=== PATIENT | female | born 1950 | race Caucasian/White ===

== ENCOUNTER 2016-04-08 19:32 | Inpatient (IN) | payer MEDICARE, SELFPAY ==
--- NOTE | ~2016-04-08 | PUL ---
[place] [id number] [facility] [place]. [address] NAME: RAYMOND ABBASI : 54 STATUS : ADM IN PAT#: [id number] AGE: 66 ADM/REG DATE : 04/09/16 MR#: [id number] REPORT SERV DATE: 04/22/16 DICTATED BY: MONICA HUNTER DATE: 04/21/16 REPORT STATUS : Draft TRANSCRIBED BY: MODL DATE: 04/21/16 PULMONARY FUNCTION TEST Total recording time 6 hours 14 minutes, mean pulse 59, mean oxygen saturation 90.7. Time when oxygen saturation less than 88%, less than 1 minute, 0.2% of the night. INTERPRETATION: This is a normal overnight pulse oximetry on an FiO2 of 40%. Upon review of the graft, no spike in wave is seen; therefore, a concern of sleep apnea is less in this study. HFQ/MODL Monica Hunter MD / [id number] CC: Dexter Stone M.D.
--- NOTE | ~2016-04-08 | DS ---
Discharge Summary [facility] [address] [place]. [address] NAME: RAYMOND ABBASI : 54 STATUS : DIS IN PAT#: [id number] AGE: 66 ADM/REG DATE : 04/09/16 MR#: [id number] REPORT SERV DATE: 05/01/16 DICTATED BY: BINDU JACOBSEN DATE: 04/30/16 REPORT STATUS : Draft TRANSCRIBED BY: MODL DATE: 04/30/16 ADMISSION DATE: 04/09/2016 DISCHARGE DATE: 04/30/2016 DISCHARGE DIAGNOSES: 1. Acute heart failure, systolic and diastolic, recovered. 2. Acute hypoxic respiratory failure. 3. History of sleep apnea with Pickwickian, on home BiPAP with oxygen at night. 4. History of diabetes type 2. 5. Morbid obesity. 6. Obesity hypoventilation syndrome. 7. Debility. 8. Hypothyroidism. CONSULTATIONS: 1. Dr. Montemayor. 2. Dr. Ibarra. HISTORY OF PRESENT ILLNESS: This is a 66-year-old, morbidly obese female patient, who came to the hospital with shortness of breath and both leg swelling. Please see dictated H and P. HOSPITAL COURSE: Please see interim discharge summary done by Dr. Camacho and Dr. Celis. Briefly, the patient was admitted to the hospital with ypzra-[id number]-[id number] heart failure and hypoxia. She was treated in the hospital with aggressive intravenous diuretic treatment. She had a good recovery from the heart failure after the diuresis. Most of the time, for the last couple of weeks, she has been staying in the hospital due to the discharge plan of this. She was needing a rehab facility and multiple facilities have been declining her stay. She stayed here until April 22, 2016, and finally, was decided to be her disposition place. Currently, she is using 4 L during the daytime and her oxygen saturation is adequate. She is having adequate urine output and remains in stable condition. Maximized inpatient benefit. The patient will be discharged to [facility] today. DISCHARGE MEDICATIONS: 1. Continue aspirin 325 mg once a day. 2. Lipitor 80 mg once at nighttime. 3. Coreg was decreased to 12.5 mg twice a day. 4. Continue lisinopril 5 mg once a day. 5. Continue Neurontin 100 mg once at nighttime. 6. Novolin N was decreased to 16 units twice a day along with NovoLog sliding scale. 7. Glucotrol was discontinued. 8. Continue Synthroid 137 mcg once a day. 9. Bumex was discontinued, and she is on torsemide 40 mg in the morning time and 20 mg in Discharge Summary [place] [address] [place]. [address] NAME: RAYMOND ABBASI : 54 STATUS : DIS IN PAT#: [id number] AGE: 66 ADM/REG DATE : 04/09/16 MR#: [id number] REPORT SERV DATE: 05/01/16 DICTATED BY: BINDU JACOBSEN DATE: 04/30/16 REPORT STATUS : Draft TRANSCRIBED BY: MODL DATE: 04/30/16 the afternoon time. 10.We are going to also use Zaroxolyn 5 mg every Thursday. 11.Continue Zoloft 50 mg once a day. 12.Aldactone 25 mg once a day. 13.Potassium 10 mEq twice a day. 14.Multivitamin once a day. 15.We will use Ultram 50 mg for pain control. Discussed with this patient regarding discharge medication change and followup plan. She voiced understanding. DISPOSITION: The patient is discharged to [facility] with a low-sodium diet. TIME SPENT: More than 30 minutes on discharge education and coordination. EKL/MODL Bindu Jacobsen M.D. / [id number] CC: Dexter Conway M.D.
--- NOTE | ~2016-04-08 | HP ---
History And Physical [facility] [address] [place]. [address] NAME: RAYMOND ABBASI : 54 STATUS : ADM Zuleika PAT#: [id number] AGE: 66 ADM/REG DATE : 04/08/16 MR#: [id number] REPORT SERV DATE: 04/09/16 DICTATED BY: DIEGO VALENTINO DATE: 04/09/16 REPORT STATUS : Draft TRANSCRIBED BY: MODL DATE: 04/09/16 DATE OF ADMISSION: 04/08/2016 CHIEF COMPLAINT: Progressively worsening shortness of breath and swelling up in her legs and abdomen. HISTORY OF PRESENT ILLNESS: This is a 66-year-old, morbidly obese female who has a history of congestive heart failure, presents to the emergency room at [facility] with the above-mentioned complaint. History is obtained from the patient, and reviewing data available on the [employer] system. According to the patient, she had been having progressive shortness of breath, swelling in her lower extremities and including her abdomen. This has been going on for a week or more. In the last 24 hours, she has, however, not been able to even get up off her bed and do activities of daily living. She says usually she is able to get up or perform activities of daily living, take care of her cat and herself. So, she finally decided to call EMS, and patient was brought to the emergency room. In the emergency room, initial workup revealed that she had hypoxemia, she had volume overload with a BNP of 544, exacerbation of her congestive heart failure, and acute kidney injury as well. Hospitalist Service is asked to admit her for further evaluation and treatment. At the time of my evaluation, she denied any chest pain or palpitations. She had no orthopnea. She had no cough, hemoptysis, night sweats, or weight loss. She denied any recent falls or loss of consciousness. She did, however, stretch her calf muscle and had some pain. No history of fevers, chills, nausea, vomiting, diarrhea, hematemesis hematochezia, or hematuria. No other history of recent travel or exposures other than those mentioned above. PAST MEDICAL HISTORY: Significant for history of congestive heart failure, hypertension, hypothyroidism, obstructive sleep apnea, obesity hypoventilation, chronic thrombocytopenia, and diabetes mellitus type 2. SOCIAL HISTORY: She does not smoke, drink, or use recreational drugs. FAMILY HISTORY: Noncontributory. HOME MEDICATIONS: Reviewed by me in the chart today and reordered by me. REVIEW OF SYSTEMS: As in history of present illness. All other systems were reviewed in detail and are quite unremarkable. PHYSICAL EXAMINATION: GENERAL: This is a very pleasant 66-year old, not in any acute distress. History And Physical [address] [address] NAME: RAYMOND ABBASI : 54 STATUS : ADM Zuleika PAT#: [id number] AGE: 66 ADM/REG DATE : 04/08/16 MR#: [id number] REPORT SERV DATE: 04/09/16 DICTATED BY: DIEGO VALENTINO DATE: 04/09/16 REPORT STATUS : Draft TRANSCRIBED BY: ISHA DATE: 04/09/16 HEENT: Her head is atraumatic, normocephalic. She is alert, awake, oriented to time, place, and person. She is morbidly obese. NECK: Supple with no jugular venous distention, lymphadenopathy, or thyromegaly. Pupils are equal, reacting to light and accommodating. External ocular muscles are intact. LUNGS: Clear to auscultation with no wheezes, rubs, or crackles. HEART: Heart sounds were regular with no murmurs, rubs, or gallops. ABDOMEN: Soft, nontender, protuberant. No organomegaly was palpable. EXTREMITIES: Showed no edema, cyanosis, or clubbing. NEUROLOGIC: Grossly intact. No focal deficits. She was able to move all four extremities. VITAL SIGNS: Temperature today was 98.0, pulse 68, respirations 16 a minute, and blood pressure today was 136/48. Oxygen saturations were 93% on 2 L via nasal cannula. LABORATORY DATA: Reviewed on the Model Metrics system showed a pH of 7.35 and arterial blood gas, pCO2 was 46, PO2 of 66 and bicarb was 24.7. This was on 3-4 L via nasal cannula. Her CMP showed a sodium of 140, potassium 4.9, chloride 100, CO2 of 29, BUN was 71 with a creatinine 1.67 and glucose was 91. Her BNP was 544 as mentioned above. Troponin was 0.02. CBC showed a white blood cell count of 6500, hemoglobin was 10.1, hematocrit 32.6 and platelet count was 128,000. Urinalysis was grossly unremarkable. Films of the chest x-ray were reviewed by me on the PACS today and interpreted by me. Per my interpretation, there is increased pulmonary vascular congestion bilaterally with cardiomegaly, suggestive of congestive heart failure. A 12-lead EKG done in the emergency room revealed sinus rhythm with a rate of 60 per minute. IMPRESSION: 1. Shortness of breath. 2. Hypoxemia. 3. Volume overload. 4. Acute kidney injury. 5. Congestive heart failure with exacerbation. 6. Hypertension. 7. Hypothyroidism. 8. Obstructive sleep apnea. 9. Obesity hypoventilation syndrome. 10.Chronic thrombocytopenia. 11.Diabetes mellitus type 2. PLAN: We will admit the patient to the Hospitalist Service with telemetry for a 24-hour observation period. We will start her on bronchodilator treatments, continue supplemental oxygen therapy and start her on intravenous diuretics for volume overload as well. We will follow this with serial output measurements and daily weights and get an echocardiogram in the morning. We will go ahead and consult Cardiology Service to evaluate her as well. We will follow chemistry in the morning along with electrolytes and replace as needed. We will also check her thyroid function. She will be on NovoLog insulin subcutaneously per sliding scale for blood sugar control. We will check her A1c as well. We will continue all other medications and treatments at this time. We will be holding her magnesium, ESTRADA inhibitors, and diuretics that she is on. Please see today's orders for more details. I have discussed the above plans with the patient. Her questions were answered and she is agreeable to the History And Physical [address] [address] NAME: RAYMOND ABBASI : 54 STATUS : ADM Zuleika PAT#: [id number] AGE: 66 ADM/REG DATE : 04/08/16 MR#: [id number] REPORT SERV DATE: 04/09/16 DICTATED BY: DIEGO VALENTINO DATE: 04/09/16 REPORT STATUS : Draft TRANSCRIBED BY: ISHA DATE: 04/09/16 above recommendations. Hospitalist Service will be following her during her stay here. /ISHA Diego Valentino M.D. / [id number] CC: Ruddy Rivers Jr, MD
--- NOTE | ~2016-04-08 | IDS ---
Interim Discharge Summary [facility] [address] [place]. [address] NAME: RAYMOND ABBASI : 54 STATUS : ADM IN PAT#: [id number] AGE: 66 ADM/REG DATE : 04/09/16 MR#: [id number] REPORT SERV DATE: 04/29/16 DICTATED BY: CRISTINA CELIS DATE: 04/28/16 REPORT STATUS : Draft TRANSCRIBED BY: MODL DATE: 04/28/16 ADMISSION DATE: 04/09/2016 DISCHARGE DATE: REASON FOR ADMISSION: Acute systolic heart failure exacerbation, volume overload, acute kidney injury. HISTORY OF PRESENT ILLNESS: Please refer to Dr. Diego Piña's history and physical dated 04/09/2016 for complete details on the patient's admission. The patient was admitted to the Hospitalist Service with volume overload. Hospital course from admission to 04/22, please refer to Dr. Trinh Camacho's interim summary. In brief, Dr. Camacho had taken care of the patient and treated her for an acute on chronic diastolic-systolic heart failure exacerbation and acute on chronic respiratory failure. Cardiology had been involved to help with diuresis. She continued her CPAP at night. We were waiting for placement for this patient when I assumed care of this patient. I assumed care of this patient on 04/[address] Camacho, at which point she still had some significant dependent edema. She was already on torsemide, I had added metolazone, and her dependent edema has certainly gotten better. We spent most of the week trying to find placement for her as she had been denied by multiple facilities. I believe that she has been accepted at [facility], but we are currently awaiting bed availability with hopes of discharging her potentially on Thursday to [facility] for further care. All of the consultants have signed off by now, and all of her medications are p.o. She has tolerated metolazone very well. We had been watching her kidney function and her potassium level daily. She still remains at her baseline hypoxemia or hypoxic failure at about 4-5 L per day and needing 4-5 L at night along with using CPAP. Further disposition per oncoming hospitalist. INTERIM DIAGNOSES: Acute on chronic hypoxic respiratory failure, now resolved; obstructive sleep apnea, on CPAP; obesity hypoventilation syndrome, Pickwickian; chronic systolic heart failure, now compensated; super morbid obesity; functional paraplegia; hypothyroidism. PROCEDURES: Include consultation with Cardiology, Dr. Ibarra, two-view ankle, MRI of her lower extremity joint, renal ultrasound, lower extremity Doppler, chest x-ray. AIDE/ISHA Cristina Celis MD / [id number] CC: MD Osvaldo Guadalupe M.D.
--- NOTE | ~2016-04-08 | CN ---
Consultation Report [facility] [address] [place]. [address] NAME: RAYMOND ABBASI : 54 STATUS : ADM Zuleika PAT#: [id number] AGE: 66 ADM/REG DATE : 04/08/16 MR#: [id number] REPORT SERV DATE: 04/09/16 DICTATED BY: DATE: REPORT STATUS : Draft TRANSCRIBED BY: MODL DATE: 04/09/16 CONSULTATION DATE OF CONSULTATION: 04/09/2016 CHIEF COMPLAINT/REASON FOR CONSULTATION: Acute on chronic systolic heart failure. HISTORY OF PRESENT ILLNESS: Mrs. Abbasi is a pleasant 66-year-old female, who was admitted to hospital 12/30 through 01/13 for acute on chronic congestive heart failure exacerbation and acute on chronic respiratory failure, and she presents to hospital overnight for similar symptoms. The patient stated that she was discharged on 1 mg of Bumex twice per day, and she followed up with Dr. Campos approximately two weeks after her hospitalization and he increased her Bumex to 2 mg twice per day, but this did not help alleviate her volume overload. She had scheduled followup with Cardiology, but could not make this followup appointment due to her inability to move and her ability to find transportation for her to the clinic. She states that she has been limiting her salt and has been trying to limit her fluid. She eats generally sandwiches, which she makes herself and eats out about three times a week. She states that she has not had any chest pain, but has increasing edema, swelling in her abdomen and legs, and increasing shortness of breath, especially over the past two days. She was trying to get into bed a couple of days ago and she felt a pop and extreme pain in her left lower extremity and has been largely immobile. The patient had an initial weight during her last hospitalization of 223 kg. She was diuresed down to 199 kg. She presents with a weight of approximately 223 kg at this admission. PAST MEDICAL HISTORY: 1. Chronic systolic heart failure, ejection fraction 39%, 12/2015. 2. Chronic hypoxemic and hypercapnic respiratory failure. 3. Obstructive sleep apnea, on BiPAP therapy nightly. 4. Obesity hypoventilation syndrome. 5. Morbid obesity with BMI greater than 40. 6. Hypertension. 7. Diabetes mellitus. SOCIAL HISTORY: The patient lives alone. She has a limited income. She does not smoke, drink, or use extracurricular drugs. OUTPATIENT MEDICATIONS: Include: 1. Atorvastatin 80 mg p.o. daily. 2. Bumex 1 mg p.o. b.i.d. 3. Lisinopril 5 mg p.o. daily. 4. Insulin. 5. Sertraline. Consultation Report [place] [id number] [facility] [place] [address] NAME: RAYMOND ABBASI : 54 STATUS : ADM Zuleika PAT#: [id number] AGE: 66 ADM/REG DATE : 04/08/16 MR#: [id number] REPORT SERV DATE: 04/09/16 DICTATED BY: DATE: REPORT STATUS : Draft TRANSCRIBED BY: MODL DATE: 04/09/16 6. Levothyroxine. 7. Multivitamin. 8. Spironolactone 25 mg p.o. daily. FAMILY HISTORY: Noncontributory. REVIEW OF SYSTEMS: All systems are reviewed and are negative, except for as dictated in the HPI. PHYSICAL EXAMINATION: VITAL SIGNS: Blood pressures range between 136 to 107 over 48 to 50, respirations 16, pulse is between 69 and 68, oxygen saturations 94% on 4 L nasal cannula. GENERAL: Mrs. Abbasi is a suboptimally groomed 66-year-old female. She is currently wearing her BiPAP. NECK: I could not appreciate jugular venous distention due to the patient's body habitus. HEART: Regular rate and rhythm. There is a 3/6 systolic murmur best appreciated in the aortic band. LUNGS: Clear, but limited evaluation is available. I am not able to lift the patient. She is unable to move. ABDOMEN: I could not appreciate renal bruits. There is a pitting edema in the abdominal pannus bilaterally. EXTREMITIES: Warm. There is marked tenderness to the lower extremities bilaterally. Positive edema bilaterally. NEUROLOGIC: I could not appreciate focal neurologic deficits. MUSCULOSKELETAL: I could not appreciate clubbing or cyanosis of the digits. SKIN: There is erythema on the left lower extremity, greater than the right lower extremity. DATA: Hemoglobin 9.1, hematocrit 28.2, white blood cell count 4.3, platelet count is 100. Sodium 141, potassium 4.8, BUN 69, creatinine 1.64, magnesium 2.9. BNP on admission was 544. Troponin is less than 0.02. PCO2 on admission was 46, PO2 was 66 on admission. An EKG performed on admission demonstrated low voltage, sinus rhythm with a borderline first- degree AV block, there are no ischemic ST-T segment changes. IMPRESSION REPORT AND PLAN: 1. Acute on chronic systolic heart failure. 2. Acute on chronic renal failure. 3. Acute on chronic respiratory failure. 4. Morbid obesity. 5. Obesity hypoventilation syndrome. 6. Hypertension. 7. Diabetes mellitus. 8. Immobility. 9. Pancytopenia. Consultation Report [place] [id number] [place]. [address] NAME: RAYMOND ABBASI : 54 STATUS : ADM Zuleika PAT#: [id number] AGE: 66 ADM/REG DATE : 04/08/16 MR#: [id number] REPORT SERV DATE: 04/09/16 DICTATED BY: DATE: REPORT STATUS : Draft TRANSCRIBED BY: SIHA DATE: 04/09/16 RECOMMENDATIONS: 1. Increase Bumex to 2 mg IV q.8 hours, the patient was taking 2 mg b.i.d. at home. 2. Continue spironolactone as tolerated and Coreg. 3. ESTRADA inhibitor as renal insufficiency improves. 4. Check left lower extremity ultrasound. 5. Recommend PT and OT evaluation. 6. The patient is not a candidate for invasive cardiac tests and procedures due to her weight greater than 500 pounds. 7. Check MUGA. 8. Would recommend investigation of renal failure and pancytopenia per Hospital Medicine. It has been my pleasure to participate in the care of this patient. Nichol/ISHA Kristy Ibarra M.D. / [id number] CC: Ruddy Rivers Jr, MD Kirk Wilcox, M.D.
--- NOTE | ~2016-04-08 | IDS ---
Interim Discharge Summary [facility] [address] [place]. [address] NAME: RAYMOND ABBASI : 54 STATUS : ADM IN PAT#: [id number] AGE: 66 ADM/REG DATE : 04/09/16 MR#: [id number] REPORT SERV DATE: 04/22/16 DICTATED BY: ARIS BARTLETT DATE: 04/21/16 REPORT STATUS : Draft TRANSCRIBED BY: ISHA DATE: 04/21/16 ADMISSION DATE: 04/09/2016 DISCHARGE DATE: DIAGNOSES: 1. Acute on chronic respiratory failure. 2. Systolic-diastolic congestive heart failure exacerbation. 3. History of obstructive sleep apnea with maritzaian on home BiPAP with oxygen at night. 4. History of type 2 diabetes. 5. Morbid obesity. 6. Left ankle sprain. 7. Hypothyroidism. 8. Debility. CONSULTANTS: 1. Cardiology with Dr. Kristy Ibarra. 2. Hospitalist, Dr. Diego Piña, Dr. Arslan Coburn, and Dr. Bartlett. HOSPITAL COURSE: A 66 years old female with morbid obesity and congestive heart failure, presented with progressive shortness of breath and swelling of legs and abdomen with an elevated BNP. She was admitted to the Hospitalist Service and initially admitted to Dr. Arslan Sal. The patient was diuresed for CHF exacerbation. Also, her home BiPAP with oxygen was continued. The patient states she uses 5 L of oxygen with her BiPAP at night. The patient had a continued complaint of left leg discomfort, and venous Doppler ultrasound of the left lower extremity was ordered that was negative for DVT. Also, her acute kidney injury resolved. She was seen by Cardiology during her hospital course who pulse dosed Diuril with the patient's torsemide with good urine output. She has had improvement of her fluid status. She did have an MRI of the lower extremity ordered by Dr. Coburn that showed some mild tendinosis of the Achilles tendon, but no tear. No acute fracture. I attended for Ms. Abbasi initiating on 04/15/2016, and during that time, also Cardiology did eventually sign off. She continued with diuresing which improved, and Case Management has been working to find a rehab facility. However, the patient has not been approved for multiple rehab facilities and has been declined; however, 1 rehab facility at [place] will take the patient, but the patient must be on 4 L of oxygen which is the highest O2 requirement. Therefore, for the next 2 nights, the patient will be tested on 4 L with her BiPAP at night, to test for any desatting if the patient has any desaturations 88% or less, then she is to resume her 5 L, and she will be on continuous pulse ox at night and lunchroom monitor. The patient will be followed by Dr. Celis, starting tomorrow 04/22/2016 who will attend to this patient's care. CEZAR/ISHA Interim Discharge Summary [address] [place]. [address] NAME: RAYMOND ABBASI : 54 STATUS : ADM IN [facility]#: [id number] AGE: 66 ADM/REG DATE : 04/09/16 MR#: [id number] REPORT SERV DATE: 04/22/16 DICTATED BY: ARIS BARTLETT DATE: 04/21/16 REPORT STATUS : Draft TRANSCRIBED BY: ISHA DATE: 04/21/16 Aris Bartlett M.D. / [id number]
[2016-04-08 18:38] LABS: ALLENS TEST Pos; BE (BASE EXCESS) -1.1 MEQ/L (0 +/- 2.5); CARBOXYHEMOGLOBIN 1.4 % (0-3); DEVICE NC; HCO3 (ACTUAL BICARBONATE) 24.7 MEQ/L (23-27); HEMOBLOGIN CONTENT 10.4 G/DL (12-16); INSTRUMENT SERIAL # 8087; METHEMOGLOBIN 0.1 % (0-3); O2 CONTENT 13.1 VOL% (18-24); PCO2 (CO2 TENSION) 46 MMHG (35-45); PO2 (O2 TENSION) 66 MMHG (79-93); SAMPLE Arterial; pH 7.35 (7.37-7.43)
[2016-04-08 18:44] LABS: WBC (NOT ORDERED) (RFLEX) 0 (0-5)
[2016-04-08 18:51] LABS: BASOPHILS 0.3 %; BASOPHILS ABSOLUTE 0.02 10/3/uL (0.0-0.16); EOSINOPHILS 1.5 %; ER CBC TAT 0 Hrs 07 Mins; IMMATURE GRANULOCYTES 0.2 %; IMMATURE GRANULOCYTES ABSOLUTE 0.01 10/3/uL (0.0-0.11); LYMPHOCYTES 16.7 %; LYMPHOCYTES ABSOLUTE 1.09 10/3/uL (0.67-4.30); MEAN CORPUSCULAR HEMOGLOB 28.6 pg (26.0-34.0); MEAN PLATELET VOLUME 10.7 fL (9.2-13.0); MONOCYTES 5.4 %; MONOCYTES ABSOLUTE 0.35 10/3/uL (0.21-1.20); NEUTROPHILS 75.9 %; NEUTROPHILS ABSOLUTE 4.94 10/3/uL (2.02-8.40); PLATELET COUNT 128 10/3/uL (150-400); WHITE BLOOD CELLS 6.5 10/3/uL (4.5-10.5)
[2016-04-08 18:54] LABS: HEMATOCRIT 32.6 % (36.0-48.0); HEMOGLOBIN 10.1 g/dL (12.0-16.0); MANUAL DIFF NO %; MEAN CORPUSCULAR VOLUME 92.4 fL (80-100); RBC DISTRIBUTION WIDTH 16.4 % (12.0-16.0); RED CELL COUNT 3.53 10/6/uL (4.0-5.6)
[2016-04-08 18:56] LABS: ASCORBIC ACID (UR NOT ORDER) 20 (NEG); BILIRUBIN, URINE NEGATIVE (NEG); ER URINALYSIS TAT 0 Hrs 15 Mins; KETONE, URINE NEGATIVE (NEG); LEUKOCYTE ESTERASE(NOT OR NEG (NEG); NITRITE (URINE) NEG (NEG)
[2016-04-08 19:03] LABS: INTERNATIONAL NORMAL RATI 1.4 UNITS (-); PARTIAL THROMBO TIME 40.2 SEC (22.5-37.2); PROTIME (NOT ORD) 16.8 SEC (12.0-14.5)
[2016-04-08 19:10] LABS: CALCIUM, SERUM 9.2 MG/DL (8.5-10.4); CHEST PAIN PROFILE TAT 0 Hrs 26 Mins; CHLORIDE, SERUM 100 MMOL/L (96-112); CO2 (CARBON DIOXIDE) 29 MMOL/L (24-34); POTASSIUM, SERUM 4.9 MMOL/L (3.5-5.3); SODIUM, SERUM 140 MMOL/L (135-148); TROPONIN I <0.02 NG/ML (<0.05)
[2016-04-08 19:14] LABS: BUN (BLOOD UREA NITROGEN) 71 MG/DL (6-23); CREATININE 1.67 MG/DL (0.55-1.02); GFR AFRICAN AMERICAN 37 ML/MIN (>=60); GFR NON AFRICAN AMERICAN 32 ML/MIN (>=60); GLUCOSE, SERUM 91 MG/DL (60-99)
[~2016-04-08 19:32] MED LIST: ASAEC PO; BUM1 PO; CARTIA XT240 MG/24 PO; COREG25 PO; FISH OIL1200 MG PO; GLUCOTRO10 PO; INSNOVN SC; KLOR-CON 1010 MEQ PO; L40 PO; LEVOTHYROXIN137 MCG PO; LIPITOR80 MG PO; MAGNESIUM OTC PO; MVI PO; NEUR100 PO; NOVOLOG SC; PRIN5 PO; SANCTURA20 MG PO; SPIRO25 PO; T PO; VICTOZA18 MG/3 ML SC; ZOL50 PO; [UNRECOGNIZED DRUG - OTHER] PO
[2016-04-08] MEDS ORDERED: BUM1 PO (20:33)
[2016-04-08] MEDS ORDERED: LIPITOR80 MG PO (20:33)
[2016-04-08] MEDS ORDERED: COREG25 PO (20:33)
[2016-04-08] MEDS ORDERED: NEUR100 PO (20:33)
[2016-04-08] MEDS ORDERED: GLUCOTRO10 PO (20:34)
[2016-04-08] MEDS ORDERED: PRIN5 PO (20:35)
[2016-04-08] MEDS ORDERED: KDUR10 PO (20:35)
[2016-04-08] MEDS ORDERED: ZOL50 PO (20:35)
[2016-04-08] MEDS ORDERED: SYNTHROID137 MCG PO (20:35)
[2016-04-08] MEDS ORDERED: INSNOVN SC (20:36)
[2016-04-08] MEDS ORDERED: SPIRO25 PO (20:36)
[2016-04-08] MEDS ORDERED: INSNOVR (20:36)
[2016-04-08] MEDS ORDERED: [UNRECOGNIZED DRUG - OTHER] PO (20:37)
[2016-04-08] MEDS ORDERED: CALCIUM/MAGNESIUM PO (20:38)
[2016-04-08] MEDS ORDERED: ASABAYER PO (20:38)
[2016-04-08] MEDS ORDERED: T PO (20:39)
[2016-04-08] MEDS ORDERED: MULTIVIT/MIN PO (20:39)
[2016-04-08] MEDS ORDERED: KRILLOIL PO (20:39)
[2016-04-09 03:40] LABS: BASOPHILS 0.2 %; BASOPHILS ABSOLUTE 0.01 10/3/uL (0.0-0.16); EOSINOPHILS 1.9 %; EOSINOPHILS ABSOLUTE 0.08 10/3/uL (0.0-0.53); HEMOGLOBIN 9.1 g/dL (12.0-16.0); LYMPHOCYTES 12.1 %; LYMPHOCYTES ABSOLUTE 0.52 10/3/uL (0.67-4.30); MEAN CORPUS HGB CONC 32.3 g/dL (32.0-36.0); MEAN CORPUSCULAR VOLUME 93.1 fL (80-100); MEAN PLATELET VOLUME 10.8 fL (9.2-13.0); MONOCYTES 17.2 %; MONOCYTES ABSOLUTE 0.74 10/3/uL (0.21-1.20); NEUTROPHILS 68.6 %; NEUTROPHILS ABSOLUTE 2.95 10/3/uL (2.02-8.40); PLATELET COUNT 100 10/3/uL (150-400); RBC DISTRIBUTION WIDTH 16.1 % (12.0-16.0); RED CELL COUNT 3.03 10/6/uL (4.0-5.6); WHITE BLOOD CELLS 4.3 10/3/uL (4.5-10.5)
[2016-04-09 03:44] LABS: HEMATOCRIT 28.2 % (36.0-48.0); MANUAL DIFF NO %
[2016-04-09 03:55] LABS: BUN (BLOOD UREA NITROGEN) 69 MG/DL (6-23); CALCIUM, SERUM 8.8 MG/DL (8.5-10.4); CHLORIDE, SERUM 103 MMOL/L (96-112); CO2 (CARBON DIOXIDE) 30 MMOL/L (24-34); CREATININE 1.48 MG/DL (0.55-1.02); GFR AFRICAN AMERICAN 43 ML/MIN (>=60); GFR NON AFRICAN AMERICAN 37 ML/MIN (>=60); GLUCOSE, SERUM 95 MG/DL (60-99); PHOSPHORUS, SERUM 4.2 MG/DL (2.5-4.5); POTASSIUM, SERUM 4.8 MMOL/L (3.5-5.3); SODIUM, SERUM 141 MMOL/L (135-148)
[2016-04-10 07:23] LABS: CALCIUM, SERUM 8.8 MG/DL (8.5-10.4); CHLORIDE, SERUM 102 MMOL/L (96-112); CO2 (CARBON DIOXIDE) 29 MMOL/L (24-34); CREATININE 1.44 MG/DL (0.55-1.02); GFR AFRICAN AMERICAN 44 ML/MIN (>=60); GFR NON AFRICAN AMERICAN 38 ML/MIN (>=60); POTASSIUM, SERUM 4.5 MMOL/L (3.5-5.3); SODIUM, SERUM 140 MMOL/L (135-148)
[2016-04-10 07:27] LABS: BUN (BLOOD UREA NITROGEN) 63 MG/DL (6-23); GLUCOSE, SERUM 60 MG/DL (60-99)
[2016-04-11 08:28] LABS: BUN (BLOOD UREA NITROGEN) 56 MG/DL (6-23); CALCIUM, SERUM 8.7 MG/DL (8.5-10.4); CHLORIDE, SERUM 100 MMOL/L (96-112); CO2 (CARBON DIOXIDE) 31 MMOL/L (24-34); GFR AFRICAN AMERICAN 50 ML/MIN (>=60); GFR NON AFRICAN AMERICAN 43 ML/MIN (>=60); GLUCOSE, SERUM 78 MG/DL (60-99); POTASSIUM, SERUM 4.1 MMOL/L (3.5-5.3); SODIUM, SERUM 140 MMOL/L (135-148)
[2016-04-12 07:03] LABS: BUN (BLOOD UREA NITROGEN) 53 MG/DL (6-23); CALCIUM, SERUM 8.8 MG/DL (8.5-10.4); CHLORIDE, SERUM 99 MMOL/L (96-112); CO2 (CARBON DIOXIDE) 30 MMOL/L (24-34); CREATININE 1.15 MG/DL (0.55-1.02); GFR AFRICAN AMERICAN 58 ML/MIN (>=60); GFR NON AFRICAN AMERICAN 50 ML/MIN (>=60); GLUCOSE, SERUM 77 MG/DL (60-99); POTASSIUM, SERUM 4.6 MMOL/L (3.5-5.3); SODIUM, SERUM 140 MMOL/L (135-148)
[2016-04-13 06:26] LABS: BASOPHILS 0.2 %; BASOPHILS ABSOLUTE 0.01 10/3/uL (0.0-0.16); EOSINOPHILS 3.1 %; EOSINOPHILS ABSOLUTE 0.15 10/3/uL (0.0-0.53); LYMPHOCYTES 13.8 %; LYMPHOCYTES ABSOLUTE 0.67 10/3/uL (0.67-4.30); MEAN CORPUS HGB CONC 31.8 g/dL (32.0-36.0); MEAN CORPUSCULAR HEMOGLOB 30.2 pg (26.0-34.0); MEAN CORPUSCULAR VOLUME 94.9 fL (80-100); MEAN PLATELET VOLUME 11.2 fL (9.2-13.0); MONOCYTES 14.6 %; MONOCYTES ABSOLUTE 0.71 10/3/uL (0.21-1.20); NEUTROPHILS 68.3 %; NEUTROPHILS ABSOLUTE 3.32 10/3/uL (2.02-8.40); PLATELET COUNT 93 10/3/uL (150-400); RBC DISTRIBUTION WIDTH 15.3 % (12.0-16.0); RED CELL COUNT 3.31 10/6/uL (4.0-5.6); WHITE BLOOD CELLS 4.9 10/3/uL (4.5-10.5)
[2016-04-13 06:32] LABS: HEMATOCRIT 31.4 % (36.0-48.0); MANUAL DIFF NO %
[2016-04-13 07:25] LABS: BUN (BLOOD UREA NITROGEN) 45 MG/DL (6-23); CHLORIDE, SERUM 98 MMOL/L (96-112); CO2 (CARBON DIOXIDE) 32 MMOL/L (24-34); CREATININE 0.99 MG/DL (0.55-1.02); GFR AFRICAN AMERICAN 70 ML/MIN (>=60); GFR NON AFRICAN AMERICAN 60 ML/MIN (>=60); GLUCOSE, SERUM 89 MG/DL (60-99); PHOSPHORUS, SERUM 2.9 MG/DL (2.5-4.5); SODIUM, SERUM 138 MMOL/L (135-148)
[2016-04-14 06:46] LABS: BASOPHILS 0.5 %; BASOPHILS ABSOLUTE 0.03 10/3/uL (0.0-0.16); EOSINOPHILS 2.5 %; EOSINOPHILS ABSOLUTE 0.14 10/3/uL (0.0-0.53); HEMATOCRIT 31.9 % (36.0-48.0); HEMOGLOBIN 10.2 g/dL (12.0-16.0); LYMPHOCYTES 11.2 %; LYMPHOCYTES ABSOLUTE 0.63 10/3/uL (0.67-4.30); MEAN CORPUSCULAR HEMOGLOB 30.2 pg (26.0-34.0); MEAN CORPUSCULAR VOLUME 94.4 fL (80-100); MEAN PLATELET VOLUME 11.4 fL (9.2-13.0); MONOCYTES 13.4 %; MONOCYTES ABSOLUTE 0.75 10/3/uL (0.21-1.20); NEUTROPHILS 72.4 %; NEUTROPHILS ABSOLUTE 4.06 10/3/uL (2.02-8.40); PLATELET COUNT 107 10/3/uL (150-400); RBC DISTRIBUTION WIDTH 15.4 % (12.0-16.0); RED CELL COUNT 3.38 10/6/uL (4.0-5.6); WHITE BLOOD CELLS 5.6 10/3/uL (4.5-10.5)
[2016-04-14 06:47] LABS: MANUAL DIFF NO %
[2016-04-14 07:03] LABS: BUN (BLOOD UREA NITROGEN) 45 MG/DL (6-23); CALCIUM, SERUM 9.2 MG/DL (8.5-10.4); CHLORIDE, SERUM 96 MMOL/L (96-112); CO2 (CARBON DIOXIDE) 33 MMOL/L (24-34); CREATININE 1.06 MG/DL (0.55-1.02); GFR AFRICAN AMERICAN 64 ML/MIN (>=60); GFR NON AFRICAN AMERICAN 55 ML/MIN (>=60); GLUCOSE, SERUM 94 MG/DL (60-99); PHOSPHORUS, SERUM 3.1 MG/DL (2.5-4.5); SODIUM, SERUM 137 MMOL/L (135-148)
[2016-04-15 06:15] LABS: BASOPHILS 0.3 %; BASOPHILS ABSOLUTE 0.02 10/3/uL (0.0-0.16); EOSINOPHILS 2.4 %; EOSINOPHILS ABSOLUTE 0.15 10/3/uL (0.0-0.53); HEMATOCRIT 33.2 % (36.0-48.0); HEMOGLOBIN 10.5 g/dL (12.0-16.0); IMMATURE GRANULOCYTES 0.2 %; IMMATURE GRANULOCYTES ABSOLUTE 0.01 10/3/uL (0.0-0.11); LYMPHOCYTES 13.8 %; LYMPHOCYTES ABSOLUTE 0.85 10/3/uL (0.67-4.30); MANUAL DIFF NO %; MEAN CORPUS HGB CONC 31.6 g/dL (32.0-36.0); MEAN CORPUSCULAR HEMOGLOB 29.8 pg (26.0-34.0); MEAN CORPUSCULAR VOLUME 94.3 fL (80-100); MEAN PLATELET VOLUME 11.1 fL (9.2-13.0); MONOCYTES 11.8 %; MONOCYTES ABSOLUTE 0.73 10/3/uL (0.21-1.20); NEUTROPHILS 71.5 %; NEUTROPHILS ABSOLUTE 4.41 10/3/uL (2.02-8.40); PLATELET COUNT 112 10/3/uL (150-400); RBC DISTRIBUTION WIDTH 15.5 % (12.0-16.0); RED CELL COUNT 3.52 10/6/uL (4.0-5.6); WHITE BLOOD CELLS 6.2 10/3/uL (4.5-10.5)
[2016-04-15 06:29] LABS: CHLORIDE, SERUM 95 MMOL/L (96-112); CO2 (CARBON DIOXIDE) 37 MMOL/L (24-34); CREATININE 0.97 MG/DL (0.55-1.02); GFR AFRICAN AMERICAN 72 ML/MIN (>=60); GFR NON AFRICAN AMERICAN 62 ML/MIN (>=60); GLUCOSE, SERUM 101 MG/DL (60-99); POTASSIUM, SERUM 4.3 MMOL/L (3.5-5.3); SODIUM, SERUM 138 MMOL/L (135-148)
[2016-04-15 06:33] LABS: BUN (BLOOD UREA NITROGEN) 38 MG/DL (6-23)
[2016-04-15 15:24] LABS: T PROTEIN (ELECT)(NOT OR 6.9 G/DL (6.0-8.5)
[2016-04-16 06:50] LABS: BASOPHILS 0.4 %; BASOPHILS ABSOLUTE 0.02 10/3/uL (0.0-0.16); EOSINOPHILS 2.5 %; EOSINOPHILS ABSOLUTE 0.13 10/3/uL (0.0-0.53); HEMATOCRIT 31.5 % (36.0-48.0); IMMATURE GRANULOCYTES 0.2 %; IMMATURE GRANULOCYTES ABSOLUTE 0.01 10/3/uL (0.0-0.11); LYMPHOCYTES 14.4 %; LYMPHOCYTES ABSOLUTE 0.74 10/3/uL (0.67-4.30); MEAN CORPUS HGB CONC 31.7 g/dL (32.0-36.0); MEAN CORPUSCULAR VOLUME 94.6 fL (80-100); MEAN PLATELET VOLUME 10.9 fL (9.2-13.0); MONOCYTES 11.5 %; MONOCYTES ABSOLUTE 0.59 10/3/uL (0.21-1.20); NEUTROPHILS ABSOLUTE 3.64 10/3/uL (2.02-8.40); PLATELET COUNT 112 10/3/uL (150-400); RBC DISTRIBUTION WIDTH 15.5 % (12.0-16.0); RED CELL COUNT 3.33 10/6/uL (4.0-5.6); WHITE BLOOD CELLS 5.1 10/3/uL (4.5-10.5)
[2016-04-16 06:51] LABS: MANUAL DIFF NO %
[2016-04-16 07:05] LABS: BUN (BLOOD UREA NITROGEN) 37 MG/DL (6-23); CALCIUM, SERUM 8.9 MG/DL (8.5-10.4); CHLORIDE, SERUM 96 MMOL/L (96-112); CO2 (CARBON DIOXIDE) 36 MMOL/L (24-34); CREATININE 0.96 MG/DL (0.55-1.02); GFR AFRICAN AMERICAN 72 ML/MIN (>=60); GFR NON AFRICAN AMERICAN 63 ML/MIN (>=60); GLUCOSE, SERUM 107 MG/DL (60-99); POTASSIUM, SERUM 4.2 MMOL/L (3.5-5.3); SODIUM, SERUM 137 MMOL/L (135-148)
[2016-04-16 09:58] LABS: A/G 1.28 RATIO (0.9-2.10); ALB RELATIVE % 56.1 % (60.0-89.0); ALBUMIN (ELECTRO) 3.87 GM/DL (3.2-5.5); ALPHA 1 (ELECTRO) 0.26 GM/DL (0.1-0.4); ALPHA 1 RELAT % (NOT ORD) 3.7 % (1.0-4.0); ALPHA 2 (ELECTRO) 0.73 GM/DL (0.5-1.10); ALPHA 2 RELAT % 10.6 % (4.5-26.0); BETA GLOBULIN (SPE) 0.72 GM/DL (0.60-1.30); BETA RELATIVE % 10.4 % (9.0-22.0); GAMMA GLOBULIN (SPE) 1.32 G/DL (0.70-1.60); GAMMA RELAT % 19.2 % (6.0-22.0)
[2016-04-17 06:59] LABS: BASOPHILS 0.2 %; BASOPHILS ABSOLUTE 0.01 10/3/uL (0.0-0.16); EOSINOPHILS 2.6 %; EOSINOPHILS ABSOLUTE 0.15 10/3/uL (0.0-0.53); HEMOGLOBIN 9.8 g/dL (12.0-16.0); LYMPHOCYTES ABSOLUTE 0.59 10/3/uL (0.67-4.30); MEAN CORPUS HGB CONC 31.6 g/dL (32.0-36.0); MEAN CORPUSCULAR HEMOGLOB 29.3 pg (26.0-34.0); MEAN CORPUSCULAR VOLUME 92.5 fL (80-100); MEAN PLATELET VOLUME 10.5 fL (9.2-13.0); MONOCYTES 13.8 %; MONOCYTES ABSOLUTE 0.81 10/3/uL (0.21-1.20); NEUTROPHILS 73.4 %; NEUTROPHILS ABSOLUTE 4.32 10/3/uL (2.02-8.40); PLATELET COUNT 113 10/3/uL (150-400); RBC DISTRIBUTION WIDTH 15.8 % (12.0-16.0); RED CELL COUNT 3.35 10/6/uL (4.0-5.6); WHITE BLOOD CELLS 5.9 10/3/uL (4.5-10.5)
[2016-04-17 07:01] LABS: MANUAL DIFF NO %
[2016-04-17 07:11] LABS: BUN (BLOOD UREA NITROGEN) 38 MG/DL (6-23); CALCIUM, SERUM 9.1 MG/DL (8.5-10.4); CHLORIDE, SERUM 95 MMOL/L (96-112); CO2 (CARBON DIOXIDE) 38 MMOL/L (24-34); CREATININE 1.01 MG/DL (0.55-1.02); GFR AFRICAN AMERICAN 68 ML/MIN (>=60); GFR NON AFRICAN AMERICAN 59 ML/MIN (>=60); GLUCOSE, SERUM 114 MG/DL (60-99); POTASSIUM, SERUM 4.7 MMOL/L (3.5-5.3); SODIUM, SERUM 137 MMOL/L (135-148)
[2016-04-18 06:44] LABS: BASOPHILS 0.4 %; BASOPHILS ABSOLUTE 0.02 10/3/uL (0.0-0.16); EOSINOPHILS 3.1 %; EOSINOPHILS ABSOLUTE 0.17 10/3/uL (0.0-0.53); HEMATOCRIT 33.2 % (36.0-48.0); HEMOGLOBIN 10.3 g/dL (12.0-16.0); IMMATURE GRANULOCYTES 0.2 %; IMMATURE GRANULOCYTES ABSOLUTE 0.01 10/3/uL (0.0-0.11); LYMPHOCYTES 13.4 %; LYMPHOCYTES ABSOLUTE 0.74 10/3/uL (0.67-4.30); MONOCYTES 14.3 %; MONOCYTES ABSOLUTE 0.79 10/3/uL (0.21-1.20); NEUTROPHILS 68.6 %; NEUTROPHILS ABSOLUTE 3.79 10/3/uL (2.02-8.40); PLATELET COUNT 114 10/3/uL (150-400); RBC DISTRIBUTION WIDTH 15.8 % (12.0-16.0); RED CELL COUNT 3.43 10/6/uL (4.0-5.6); WHITE BLOOD CELLS 5.5 10/3/uL (4.5-10.5)
[2016-04-18 06:47] LABS: MANUAL DIFF NO %; MEAN CORPUSCULAR VOLUME 96.8 fL (80-100)
[2016-04-18 06:57] LABS: BUN (BLOOD UREA NITROGEN) 39 MG/DL (6-23); CALCIUM, SERUM 9.4 MG/DL (8.5-10.4); CHLORIDE, SERUM 92 MMOL/L (96-112); CO2 (CARBON DIOXIDE) 37 MMOL/L (24-34); CREATININE 1.04 MG/DL (0.55-1.02); GFR AFRICAN AMERICAN 66 ML/MIN (>=60); GFR NON AFRICAN AMERICAN 57 ML/MIN (>=60); GLUCOSE, SERUM 85 MG/DL (60-99); PHOSPHORUS, SERUM 3.5 MG/DL (2.5-4.5); POTASSIUM, SERUM 4.1 MMOL/L (3.5-5.3); SODIUM, SERUM 139 MMOL/L (135-148)
[2016-04-19 05:49] LABS: BASOPHILS 0.4 %; BASOPHILS ABSOLUTE 0.02 10/3/uL (0.0-0.16); EOSINOPHILS 2.9 %; EOSINOPHILS ABSOLUTE 0.16 10/3/uL (0.0-0.53); HEMATOCRIT 31.9 % (36.0-48.0); HEMOGLOBIN 9.9 g/dL (12.0-16.0); IMMATURE GRANULOCYTES 0.2 %; IMMATURE GRANULOCYTES ABSOLUTE 0.01 10/3/uL (0.0-0.11); LYMPHOCYTES 11.8 %; LYMPHOCYTES ABSOLUTE 0.66 10/3/uL (0.67-4.30); MEAN CORPUSCULAR HEMOGLOB 29.9 pg (26.0-34.0); MEAN CORPUSCULAR VOLUME 96.4 fL (80-100); MEAN PLATELET VOLUME 11.1 fL (9.2-13.0); MONOCYTES 16.3 %; MONOCYTES ABSOLUTE 0.91 10/3/uL (0.21-1.20); NEUTROPHILS 68.4 %; NEUTROPHILS ABSOLUTE 3.84 10/3/uL (2.02-8.40); PLATELET COUNT 117 10/3/uL (150-400); RBC DISTRIBUTION WIDTH 15.9 % (12.0-16.0); RED CELL COUNT 3.31 10/6/uL (4.0-5.6); WHITE BLOOD CELLS 5.6 10/3/uL (4.5-10.5)
[2016-04-19 05:51] LABS: MANUAL DIFF NO %
[2016-04-19 06:00] LABS: BUN (BLOOD UREA NITROGEN) 40 MG/DL (6-23); CALCIUM, SERUM 9.3 MG/DL (8.5-10.4); CHLORIDE, SERUM 91 MMOL/L (96-112); CO2 (CARBON DIOXIDE) 36 MMOL/L (24-34); CREATININE 1.06 MG/DL (0.55-1.02); GFR AFRICAN AMERICAN 64 ML/MIN (>=60); GFR NON AFRICAN AMERICAN 55 ML/MIN (>=60); PHOSPHORUS, SERUM 3.4 MG/DL (2.5-4.5); SODIUM, SERUM 136 MMOL/L (135-148)
[2016-04-19 06:01] LABS: GLUCOSE, SERUM 105 MG/DL (60-99)
[2016-04-20 04:55] LABS: BASOPHILS 0.2 %; BASOPHILS ABSOLUTE 0.01 10/3/uL (0.0-0.16); EOSINOPHILS 2.8 %; EOSINOPHILS ABSOLUTE 0.15 10/3/uL (0.0-0.53); HEMATOCRIT 33.5 % (36.0-48.0); HEMOGLOBIN 10.4 g/dL (12.0-16.0); IMMATURE GRANULOCYTES 0.2 %; IMMATURE GRANULOCYTES ABSOLUTE 0.01 10/3/uL (0.0-0.11); LYMPHOCYTES ABSOLUTE 0.59 10/3/uL (0.67-4.30); MEAN CORPUSCULAR VOLUME 96.5 fL (80-100); MEAN PLATELET VOLUME 11.1 fL (9.2-13.0); MONOCYTES 14.5 %; MONOCYTES ABSOLUTE 0.78 10/3/uL (0.21-1.20); NEUTROPHILS 71.3 %; NEUTROPHILS ABSOLUTE 3.83 10/3/uL (2.02-8.40); PLATELET COUNT 113 10/3/uL (150-400); RBC DISTRIBUTION WIDTH 15.8 % (12.0-16.0); RED CELL COUNT 3.47 10/6/uL (4.0-5.6); WHITE BLOOD CELLS 5.4 10/3/uL (4.5-10.5)
[2016-04-20 05:01] LABS: BUN (BLOOD UREA NITROGEN) 41 MG/DL (6-23); CHLORIDE, SERUM 95 MMOL/L (96-112); CO2 (CARBON DIOXIDE) 34 MMOL/L (24-34); CREATININE 0.98 MG/DL (0.55-1.02); GFR AFRICAN AMERICAN 71 ML/MIN (>=60); GFR NON AFRICAN AMERICAN 61 ML/MIN (>=60); GLUCOSE, SERUM 108 MG/DL (60-99); MANUAL DIFF NO %; PHOSPHORUS, SERUM 3.2 MG/DL (2.5-4.5); POTASSIUM, SERUM 4.3 MMOL/L (3.5-5.3); SODIUM, SERUM 137 MMOL/L (135-148)
[2016-04-21 05:42] LABS: BASOPHILS 0.4 %; BASOPHILS ABSOLUTE 0.02 10/3/uL (0.0-0.16); EOSINOPHILS 2.1 %; EOSINOPHILS ABSOLUTE 0.12 10/3/uL (0.0-0.53); HEMATOCRIT 32.4 % (36.0-48.0); HEMOGLOBIN 10.3 g/dL (12.0-16.0); IMMATURE GRANULOCYTES 0.2 %; IMMATURE GRANULOCYTES ABSOLUTE 0.01 10/3/uL (0.0-0.11); LYMPHOCYTES 10.6 %; MEAN CORPUS HGB CONC 31.8 g/dL (32.0-36.0); MEAN CORPUSCULAR HEMOGLOB 30.5 pg (26.0-34.0); MEAN CORPUSCULAR VOLUME 95.9 fL (80-100); MEAN PLATELET VOLUME 10.7 fL (9.2-13.0); MONOCYTES 14.7 %; MONOCYTES ABSOLUTE 0.83 10/3/uL (0.21-1.20); NEUTROPHILS ABSOLUTE 4.08 10/3/uL (2.02-8.40); PLATELET COUNT 108 10/3/uL (150-400); RBC DISTRIBUTION WIDTH 15.7 % (12.0-16.0); RED CELL COUNT 3.38 10/6/uL (4.0-5.6); WHITE BLOOD CELLS 5.7 10/3/uL (4.5-10.5)
[2016-04-21 05:51] LABS: MANUAL DIFF NO %
[2016-04-21 06:00] LABS: BUN (BLOOD UREA NITROGEN) 39 MG/DL (6-23); CALCIUM, SERUM 9.5 MG/DL (8.5-10.4); CHLORIDE, SERUM 92 MMOL/L (96-112); CO2 (CARBON DIOXIDE) 37 MMOL/L (24-34); CREATININE 1.01 MG/DL (0.55-1.02); GFR AFRICAN AMERICAN 68 ML/MIN (>=60); GFR NON AFRICAN AMERICAN 59 ML/MIN (>=60); GLUCOSE, SERUM 125 MG/DL (60-99); PHOSPHORUS, SERUM 3.5 MG/DL (2.5-4.5); POTASSIUM, SERUM 3.9 MMOL/L (3.5-5.3); SODIUM, SERUM 139 MMOL/L (135-148)
[2016-04-22 06:08] LABS: BASOPHILS 0.4 %; BASOPHILS ABSOLUTE 0.02 10/3/uL (0.0-0.16); EOSINOPHILS 2.6 %; EOSINOPHILS ABSOLUTE 0.14 10/3/uL (0.0-0.53); HEMATOCRIT 32.9 % (36.0-48.0); HEMOGLOBIN 10.4 g/dL (12.0-16.0); IMMATURE GRANULOCYTES 0.2 %; IMMATURE GRANULOCYTES ABSOLUTE 0.01 10/3/uL (0.0-0.11); LYMPHOCYTES 14.2 %; LYMPHOCYTES ABSOLUTE 0.78 10/3/uL (0.67-4.30); MANUAL DIFF NO %; MEAN CORPUS HGB CONC 31.6 g/dL (32.0-36.0); MEAN CORPUSCULAR HEMOGLOB 30.1 pg (26.0-34.0); MEAN CORPUSCULAR VOLUME 95.4 fL (80-100); MEAN PLATELET VOLUME 11.2 fL (9.2-13.0); MONOCYTES ABSOLUTE 0.66 10/3/uL (0.21-1.20); NEUTROPHILS 70.6 %; NEUTROPHILS ABSOLUTE 3.87 10/3/uL (2.02-8.40); PLATELET COUNT 111 10/3/uL (150-400); RBC DISTRIBUTION WIDTH 15.8 % (12.0-16.0); RED CELL COUNT 3.45 10/6/uL (4.0-5.6); WHITE BLOOD CELLS 5.5 10/3/uL (4.5-10.5)
[2016-04-22 06:18] LABS: CALCIUM, SERUM 9.4 MG/DL (8.5-10.4); CHLORIDE, SERUM 95 MMOL/L (96-112); CO2 (CARBON DIOXIDE) 37 MMOL/L (24-34); CREATININE 0.87 MG/DL (0.55-1.02); GFR AFRICAN AMERICAN 82 ML/MIN (>=60); GFR NON AFRICAN AMERICAN 70 ML/MIN (>=60); GLUCOSE, SERUM 110 MG/DL (60-99); PHOSPHORUS, SERUM 3.3 MG/DL (2.5-4.5); POTASSIUM, SERUM 4.1 MMOL/L (3.5-5.3); SODIUM, SERUM 138 MMOL/L (135-148)
[2016-04-22 06:23] LABS: BUN (BLOOD UREA NITROGEN) 33 MG/DL (6-23)
[2016-04-23 05:20] LABS: BASOPHILS 0.2 %; BASOPHILS ABSOLUTE 0.02 10/3/uL (0.0-0.16); EOSINOPHILS ABSOLUTE 0.16 10/3/uL (0.0-0.53); HEMATOCRIT 33.9 % (36.0-48.0); HEMOGLOBIN 10.8 g/dL (12.0-16.0); IMMATURE GRANULOCYTES 0.2 %; IMMATURE GRANULOCYTES ABSOLUTE 0.02 10/3/uL (0.0-0.11); LYMPHOCYTES 7.1 %; LYMPHOCYTES ABSOLUTE 0.58 10/3/uL (0.67-4.30); MEAN CORPUS HGB CONC 31.9 g/dL (32.0-36.0); MEAN CORPUSCULAR HEMOGLOB 30.3 pg (26.0-34.0); MEAN PLATELET VOLUME 10.3 fL (9.2-13.0); MONOCYTES 13.2 %; MONOCYTES ABSOLUTE 1.08 10/3/uL (0.21-1.20); NEUTROPHILS 77.3 %; PLATELET COUNT 110 10/3/uL (150-400); RBC DISTRIBUTION WIDTH 15.7 % (12.0-16.0); RED CELL COUNT 3.57 10/6/uL (4.0-5.6)
[2016-04-23 05:23] LABS: MANUAL DIFF NO %; WHITE BLOOD CELLS 8.2 10/3/uL (4.5-10.5)
[2016-04-23 05:40] LABS: BUN (BLOOD UREA NITROGEN) 30 MG/DL (6-23); CALCIUM, SERUM 9.6 MG/DL (8.5-10.4); CHLORIDE, SERUM 94 MMOL/L (96-112); CO2 (CARBON DIOXIDE) 37 MMOL/L (24-34); CREATININE 0.86 MG/DL (0.55-1.02); GFR AFRICAN AMERICAN 83 ML/MIN (>=60); GFR NON AFRICAN AMERICAN 71 ML/MIN (>=60); GLUCOSE, SERUM 116 MG/DL (60-99); PHOSPHORUS, SERUM 3.6 MG/DL (2.5-4.5); SODIUM, SERUM 139 MMOL/L (135-148)
[2016-04-24 05:13] LABS: BASOPHILS 0.1 %; BASOPHILS ABSOLUTE 0.01 10/3/uL (0.0-0.16); EOSINOPHILS 1.1 %; HEMATOCRIT 32.5 % (36.0-48.0); HEMOGLOBIN 10.2 g/dL (12.0-16.0); IMMATURE GRANULOCYTES 0.1 %; IMMATURE GRANULOCYTES ABSOLUTE 0.01 10/3/uL (0.0-0.11); LYMPHOCYTES 12.2 %; LYMPHOCYTES ABSOLUTE 1.15 10/3/uL (0.67-4.30); MEAN CORPUS HGB CONC 31.4 g/dL (32.0-36.0); MEAN CORPUSCULAR HEMOGLOB 29.4 pg (26.0-34.0); MEAN CORPUSCULAR VOLUME 93.7 fL (80-100); MEAN PLATELET VOLUME 10.8 fL (9.2-13.0); MONOCYTES 5.6 %; MONOCYTES ABSOLUTE 0.53 10/3/uL (0.21-1.20); NEUTROPHILS 80.9 %; NEUTROPHILS ABSOLUTE 7.63 10/3/uL (2.02-8.40); PLATELET COUNT 119 10/3/uL (150-400); RED CELL COUNT 3.47 10/6/uL (4.0-5.6); WHITE BLOOD CELLS 9.4 10/3/uL (4.5-10.5)
[2016-04-24 05:15] LABS: MANUAL DIFF NO %
[2016-04-24 05:28] LABS: BUN (BLOOD UREA NITROGEN) 29 MG/DL (6-23); CALCIUM, SERUM 9.3 MG/DL (8.5-10.4); CHLORIDE, SERUM 90 MMOL/L (96-112); CO2 (CARBON DIOXIDE) 37 MMOL/L (24-34); CREATININE 0.87 MG/DL (0.55-1.02); GFR AFRICAN AMERICAN 82 ML/MIN (>=60); GFR NON AFRICAN AMERICAN 70 ML/MIN (>=60); GLUCOSE, SERUM 114 MG/DL (60-99); PHOSPHORUS, SERUM 3.9 MG/DL (2.5-4.5); POTASSIUM, SERUM 3.8 MMOL/L (3.5-5.3); SODIUM, SERUM 139 MMOL/L (135-148)
[2016-04-25 07:15] LABS: BASOPHILS 0.1 %; BASOPHILS ABSOLUTE 0.01 10/3/uL (0.0-0.16); EOSINOPHILS 1.5 %; EOSINOPHILS ABSOLUTE 0.13 10/3/uL (0.0-0.53); HEMATOCRIT 32.4 % (36.0-48.0); HEMOGLOBIN 10.4 g/dL (12.0-16.0); IMMATURE GRANULOCYTES 0.2 %; IMMATURE GRANULOCYTES ABSOLUTE 0.02 10/3/uL (0.0-0.11); LYMPHOCYTES 6.6 %; LYMPHOCYTES ABSOLUTE 0.57 10/3/uL (0.67-4.30); MEAN CORPUS HGB CONC 32.1 g/dL (32.0-36.0); MEAN CORPUSCULAR HEMOGLOB 30.1 pg (26.0-34.0); MEAN CORPUSCULAR VOLUME 93.9 fL (80-100); MEAN PLATELET VOLUME 10.8 fL (9.2-13.0); MONOCYTES 14.4 %; MONOCYTES ABSOLUTE 1.25 10/3/uL (0.21-1.20); NEUTROPHILS 77.2 %; NEUTROPHILS ABSOLUTE 6.68 10/3/uL (2.02-8.40); PLATELET COUNT 120 10/3/uL (150-400); RBC DISTRIBUTION WIDTH 15.9 % (12.0-16.0); RED CELL COUNT 3.45 10/6/uL (4.0-5.6); WHITE BLOOD CELLS 8.7 10/3/uL (4.5-10.5)
[2016-04-25 07:18] LABS: MANUAL DIFF NO %
[2016-04-25 07:24] LABS: BUN (BLOOD UREA NITROGEN) 29 MG/DL (6-23); CHLORIDE, SERUM 87 MMOL/L (96-112); CREATININE 0.94 MG/DL (0.55-1.02); GFR AFRICAN AMERICAN 74 ML/MIN (>=60); GFR NON AFRICAN AMERICAN 64 ML/MIN (>=60); PHOSPHORUS, SERUM 3.8 MG/DL (2.5-4.5); POTASSIUM, SERUM 3.6 MMOL/L (3.5-5.3); SODIUM, SERUM 136 MMOL/L (135-148)
[2016-04-25 07:25] LABS: CO2 (CARBON DIOXIDE) 41 MMOL/L (24-34); GLUCOSE, SERUM 138 MG/DL (60-99)
[2016-04-26 07:06] LABS: BASOPHILS 0.3 %; BASOPHILS ABSOLUTE 0.02 10/3/uL (0.0-0.16); EOSINOPHILS 2.6 %; EOSINOPHILS ABSOLUTE 0.19 10/3/uL (0.0-0.53); HEMATOCRIT 34.7 % (36.0-48.0); LYMPHOCYTES 16.2 %; LYMPHOCYTES ABSOLUTE 1.17 10/3/uL (0.67-4.30); MEAN CORPUS HGB CONC 31.7 g/dL (32.0-36.0); MEAN CORPUSCULAR HEMOGLOB 29.5 pg (26.0-34.0); MEAN PLATELET VOLUME 10.7 fL (9.2-13.0); MONOCYTES ABSOLUTE 0.36 10/3/uL (0.21-1.20); NEUTROPHILS 75.9 %; NEUTROPHILS ABSOLUTE 5.49 10/3/uL (2.02-8.40); PLATELET COUNT 113 10/3/uL (150-400); RBC DISTRIBUTION WIDTH 15.8 % (12.0-16.0); RED CELL COUNT 3.73 10/6/uL (4.0-5.6); WHITE BLOOD CELLS 7.2 10/3/uL (4.5-10.5)
[2016-04-26 07:07] LABS: MANUAL DIFF NO %
[2016-04-26 07:19] LABS: BUN (BLOOD UREA NITROGEN) 31 MG/DL (6-23); CHLORIDE, SERUM 85 MMOL/L (96-112); CO2 (CARBON DIOXIDE) 39 MMOL/L (24-34); CREATININE 0.98 MG/DL (0.55-1.02); GFR AFRICAN AMERICAN 71 ML/MIN (>=60); GFR NON AFRICAN AMERICAN 61 ML/MIN (>=60); POTASSIUM, SERUM 3.4 MMOL/L (3.5-5.3); SODIUM, SERUM 136 MMOL/L (135-148)
[2016-04-26 07:20] LABS: GLUCOSE, SERUM 105 MG/DL (60-99)
[2016-04-27 07:35] LABS: BASOPHILS 0.3 %; BASOPHILS ABSOLUTE 0.02 10/3/uL (0.0-0.16); EOSINOPHILS 3.4 %; EOSINOPHILS ABSOLUTE 0.23 10/3/uL (0.0-0.53); HEMATOCRIT 33.6 % (36.0-48.0); HEMOGLOBIN 10.5 g/dL (12.0-16.0); LYMPHOCYTES 10.7 %; LYMPHOCYTES ABSOLUTE 0.73 10/3/uL (0.67-4.30); MEAN CORPUS HGB CONC 31.3 g/dL (32.0-36.0); MEAN CORPUSCULAR VOLUME 92.8 fL (80-100); MEAN PLATELET VOLUME 10.7 fL (9.2-13.0); MONOCYTES 14.3 %; MONOCYTES ABSOLUTE 0.98 10/3/uL (0.21-1.20); NEUTROPHILS 71.3 %; NEUTROPHILS ABSOLUTE 4.89 10/3/uL (2.02-8.40); PLATELET COUNT 126 10/3/uL (150-400); RBC DISTRIBUTION WIDTH 15.6 % (12.0-16.0); RED CELL COUNT 3.62 10/6/uL (4.0-5.6); WHITE BLOOD CELLS 6.9 10/3/uL (4.5-10.5)
[2016-04-27 07:40] LABS: MANUAL DIFF NO %
[2016-04-27 07:47] LABS: BUN (BLOOD UREA NITROGEN) 33 MG/DL (6-23); CALCIUM, SERUM 8.9 MG/DL (8.5-10.4); CHLORIDE, SERUM 85 MMOL/L (96-112); CO2 (CARBON DIOXIDE) 43 MMOL/L (24-34); GFR AFRICAN AMERICAN 69 ML/MIN (>=60); GFR NON AFRICAN AMERICAN 59 ML/MIN (>=60); GLUCOSE, SERUM 90 MG/DL (60-99); PHOSPHORUS, SERUM 3.5 MG/DL (2.5-4.5); POTASSIUM, SERUM 3.7 MMOL/L (3.5-5.3); SODIUM, SERUM 135 MMOL/L (135-148)
[2016-04-28 07:27] LABS: BASOPHILS 0.3 %; BASOPHILS ABSOLUTE 0.02 10/3/uL (0.0-0.16); EOSINOPHILS 3.9 %; EOSINOPHILS ABSOLUTE 0.25 10/3/uL (0.0-0.53); HEMOGLOBIN 10.4 g/dL (12.0-16.0); IMMATURE GRANULOCYTES 0.2 %; IMMATURE GRANULOCYTES ABSOLUTE 0.01 10/3/uL (0.0-0.11); LYMPHOCYTES 12.8 %; LYMPHOCYTES ABSOLUTE 0.83 10/3/uL (0.67-4.30); MANUAL DIFF NO %; MEAN CORPUS HGB CONC 31.5 g/dL (32.0-36.0); MEAN CORPUSCULAR HEMOGLOB 29.5 pg (26.0-34.0); MEAN CORPUSCULAR VOLUME 93.5 fL (80-100); MONOCYTES 11.8 %; MONOCYTES ABSOLUTE 0.76 10/3/uL (0.21-1.20); NEUTROPHILS ABSOLUTE 4.59 10/3/uL (2.02-8.40); PLATELET COUNT 132 10/3/uL (150-400); RBC DISTRIBUTION WIDTH 15.6 % (12.0-16.0); RED CELL COUNT 3.53 10/6/uL (4.0-5.6); WHITE BLOOD CELLS 6.5 10/3/uL (4.5-10.5)
[2016-04-28 07:37] LABS: BUN (BLOOD UREA NITROGEN) 34 MG/DL (6-23); CHLORIDE, SERUM 86 MMOL/L (96-112); CO2 (CARBON DIOXIDE) 41 MMOL/L (24-34); CREATININE 1.03 MG/DL (0.55-1.02); GFR AFRICAN AMERICAN 67 ML/MIN (>=60); GFR NON AFRICAN AMERICAN 57 ML/MIN (>=60); GLUCOSE, SERUM 105 MG/DL (60-99); PHOSPHORUS, SERUM 3.3 MG/DL (2.5-4.5); POTASSIUM, SERUM 3.6 MMOL/L (3.5-5.3); SODIUM, SERUM 137 MMOL/L (135-148)
[2016-04-29 06:11] LABS: BASOPHILS 0.3 %; BASOPHILS ABSOLUTE 0.02 10/3/uL (0.0-0.16); EOSINOPHILS 3.6 %; EOSINOPHILS ABSOLUTE 0.23 10/3/uL (0.0-0.53); HEMATOCRIT 33.1 % (36.0-48.0); HEMOGLOBIN 10.7 g/dL (12.0-16.0); IMMATURE GRANULOCYTES 0.3 %; IMMATURE GRANULOCYTES ABSOLUTE 0.02 10/3/uL (0.0-0.11); LYMPHOCYTES 13.7 %; LYMPHOCYTES ABSOLUTE 0.87 10/3/uL (0.67-4.30); MEAN CORPUS HGB CONC 32.3 g/dL (32.0-36.0); MEAN CORPUSCULAR HEMOGLOB 30.3 pg (26.0-34.0); MEAN CORPUSCULAR VOLUME 93.8 fL (80-100); MEAN PLATELET VOLUME 10.8 fL (9.2-13.0); MONOCYTES ABSOLUTE 0.95 10/3/uL (0.21-1.20); NEUTROPHILS 67.1 %; NEUTROPHILS ABSOLUTE 4.24 10/3/uL (2.02-8.40); PLATELET COUNT 144 10/3/uL (150-400); RBC DISTRIBUTION WIDTH 15.6 % (12.0-16.0); RED CELL COUNT 3.53 10/6/uL (4.0-5.6); WHITE BLOOD CELLS 6.3 10/3/uL (4.5-10.5)
[2016-04-29 06:12] LABS: MANUAL DIFF NO %
[2016-04-29 06:22] LABS: BUN (BLOOD UREA NITROGEN) 32 MG/DL (6-23); CALCIUM, SERUM 9.1 MG/DL (8.5-10.4); CHLORIDE, SERUM 85 MMOL/L (96-112); CO2 (CARBON DIOXIDE) 40 MMOL/L (24-34); CREATININE 1.03 MG/DL (0.55-1.02); GFR AFRICAN AMERICAN 67 ML/MIN (>=60); GFR NON AFRICAN AMERICAN 57 ML/MIN (>=60); GLUCOSE, SERUM 93 MG/DL (60-99); PHOSPHORUS, SERUM 3.5 MG/DL (2.5-4.5); POTASSIUM, SERUM 3.8 MMOL/L (3.5-5.3); SODIUM, SERUM 136 MMOL/L (135-148)
[2016-04-30 06:38] LABS: BASOPHILS 0.3 %; BASOPHILS ABSOLUTE 0.02 10/3/uL (0.0-0.16); EOSINOPHILS 3.4 %; EOSINOPHILS ABSOLUTE 0.24 10/3/uL (0.0-0.53); HEMATOCRIT 33.6 % (36.0-48.0); HEMOGLOBIN 10.7 g/dL (12.0-16.0); IMMATURE GRANULOCYTES 0.3 %; IMMATURE GRANULOCYTES ABSOLUTE 0.02 10/3/uL (0.0-0.11); LYMPHOCYTES 15.3 %; LYMPHOCYTES ABSOLUTE 1.07 10/3/uL (0.67-4.30); MANUAL DIFF NO %; MEAN CORPUS HGB CONC 31.8 g/dL (32.0-36.0); MEAN CORPUSCULAR HEMOGLOB 29.6 pg (26.0-34.0); MEAN CORPUSCULAR VOLUME 93.1 fL (80-100); MEAN PLATELET VOLUME 10.3 fL (9.2-13.0); MONOCYTES 10.8 %; MONOCYTES ABSOLUTE 0.76 10/3/uL (0.21-1.20); NEUTROPHILS 69.9 %; PLATELET COUNT 130 10/3/uL (150-400); RBC DISTRIBUTION WIDTH 15.5 % (12.0-16.0); RED CELL COUNT 3.61 10/6/uL (4.0-5.6)
[2016-04-30 06:51] LABS: BUN (BLOOD UREA NITROGEN) 31 MG/DL (6-23); CALCIUM, SERUM 9.3 MG/DL (8.5-10.4); CHLORIDE, SERUM 87 MMOL/L (96-112); CO2 (CARBON DIOXIDE) 40 MMOL/L (24-34); CREATININE 1.04 MG/DL (0.55-1.02); GFR AFRICAN AMERICAN 66 ML/MIN (>=60); GFR NON AFRICAN AMERICAN 57 ML/MIN (>=60); PHOSPHORUS, SERUM 3.3 MG/DL (2.5-4.5); POTASSIUM, SERUM 3.6 MMOL/L (3.5-5.3); SODIUM, SERUM 134 MMOL/L (135-148)
[2016-04-30 06:57] LABS: GLUCOSE, SERUM 124 MG/DL (60-99)
[2016-04-30] MEDS ORDERED: Z5 PO (10:21)
[2016-04-30] MEDS ORDERED: MIRALAX POWDER1 PKT PO (10:21)
[2016-04-30] MEDS ORDERED: ULTRAM50 PO (10:23)
[2016-04-30] MEDS ORDERED: DEMA20 PO (10:23)
== END 2016-04-30 18:18 | DRG 291 ==
LOC: ER 19:32 → CDU1 22:30 → 7NO 04-09 21:47
PROVIDERS: Internal Medicine; Specialist
DX: I13.0 Hypertensive heart and chronic kidney disease with heart failure and stage 1 through stage 4 chronic kidney disease, or unspecified chronic kidney disease (principal); J96.22 Acute and chronic respiratory failure with hypercapnia; J96.21 Acute and chronic respiratory failure with hypoxia; N17.9 Acute kidney failure, unspecified; D61.818 Other pancytopenia; I50.23 Acute on chronic systolic (congestive) heart failure; Z68.45 Body mass index [BMI] 70 or greater, adult; E66.2 Morbid (severe) obesity with alveolar hypoventilation; Z99.81 Dependence on supplemental oxygen; E03.9 Hypothyroidism, unspecified; E11.9 Type 2 diabetes mellitus without complications; Z79.4 Long term (current) use of insulin; N18.1 Chronic kidney disease, stage 1; R53.81 Other malaise
CPT/HCPCS: 36600; 71010; 73600-LT; 73721-LT; 76775; 80048; 81001; 82607; 82746; 82805; 82962; 83036; 83735; 83880; 84100; 84132; 84155; 84165; 84443; 84484; 85025; 85610; 85730; 93005; 93970; 94640; 94762; 96374; 97161-GP; 97530-GP; 99285; A9270-GY; C8924; G8978-CM-GP; G8979-CL-GP; J1205; J2405; P9047; Q9957